=== PATIENT | male | born 2000 | race Caucasian/White ===

== ENCOUNTER 2019-05-26 12:20 | Emergency (ER) | payer OTHER ==
[2019-05-26] MEDS ORDERED: ACETAMINOPHEN 500 MG TAB ONE (12:59)
--- NOTE | 2019-05-26 13:09 | EDPHYS ---
Physician Documentation [facility] Name: Bharat Pichardo Age: 18 yrs Sex: Male : 2000 Arrival Date: 05/26/2019 Time: 12:28 Bed 11 Private MD: Pineda Perdomo B ED Physician Primitivo Wolf HPI: 05/26 13:05 This 18 yrs old Male presents to ER via Ambulatory with complaints of Sore jmm Throat, Fever. 13:05 The patient presents with sore throat. Onset: The symptoms/episode began/occurred jmm gradually, 1 day(s) ago. Modifying factors: The symptoms are alleviated by nothing, the symptoms are aggravated by nothing. Associated signs and symptoms: Pertinent positives: fever. This is a 18 year old male with no chronic medical conditions that presents to the ED with complaints of sore throat beginning yesterday which worsened today. Similar to previous episode of pharyngitis. . Historical: - Allergies: 12:48 No Known Allergies; ph - Home Meds: 12:48 None [Active]; ph - PMHx: 12:48 None; ph - PSHx: 12:48 None; ph - Immunization history:: Adult Immunizations unknown. - Social history:: Smoking status: unknown. - Ebola Screening: : Patient negative for fever greater than or equal to 101.5 degrees Fahrenheit, and additional compatible Ebola Virus Disease symptoms Patient denies exposure to infectious person Patient denies travel to an Ebola-affected area in the 21 days before illness onset No symptoms or risks identified at this time. ROS: 13:05 Cardiovascular: Negative for chest pain, palpitations, and edema, Respiratory: Negative jmm for shortness of breath, cough, wheezing, and pleuritic chest pain. 13:05 Constitutional: Positive for chills, fever. 13:05 ENT: Positive for sore throat. 13:05 All other systems are negative. Exam: 13:05 Constitutional: This is a well developed, well nourished patient who is awake, alert, jmm and in no acute distress. Head/Face: atraumatic. Eyes: EOMI, no conjunctival erythema appreciated 13:05 Neck: Trachea midline, Supple Chest/axilla: Normal chest wall appearance and motion. Cardiovascular: Regular rate and rhythm. No edema appreciated Respiratory: Normal respirations, no respiratory distress appreciated Abdomen/GI: Non distended, soft Back: Normal ROM Skin: General appearance color normal MS/ Extremity: Moves all extremities, no obvious deformities appreciated, no edema noted to the lower extremities Neuro: Awake and alert, normal gait Psych: Behavior is normal, Mood is normal, Patient is cooperative and pleasant 13:05 ENT: Posterior pharynx: Tonsils: enlarged on the right, enlarged on the left, with erythema, with exudate, Uvula: midline, swelling, that is moderate, erythema, that is moderate, exudate, that is mild, peritonsillar mass, is not appreciated. Vital Signs: 12:48 BP 122 / 77; Pulse 119; Resp 18; Temp 102.0(O); Pulse Ox 99% on R/A; Weight 61.23 kg; ph Height 6 ft. 0 in. (182.88 cm); 12:48 Body Mass Index 18.31 (61.23 kg, 182.88 cm) ph MDM: 13:00 Patient medically screened. [facility] 13:07 Data reviewed: vital signs, nurses notes. Counseling: I had a detailed discussion with franklin the patient and/or guardian regarding: the historical points, exam findings, and any diagnostic results supporting the discharge/admit diagnosis, the need for outpatient follow up, to return to the emergency department if symptoms worsen or persist or if there are any questions or concerns that arise at home. ED course: Patient is alert and non toxic in appearance in the ED. Patient with strict return precautions. patient understood and agrees with the plan of care. . 05/26 12:50 Order name: Strep ph Administered Medications: 12:58 Drug: Tylenol 1000 mg Route: PO; ph 13:15 Follow up: Response: No adverse reaction iw 13:20 Drug: Dexamethasone 10 mg Route: IM; Site: left deltoid; iw 13:40 Follow up: Response: No adverse reaction iw Disposition: 05/27 07:20 Co-signature as Attending Physician, Primitivo Wolf MD I agree with the assessment and kdr plan of care. Disposition: 05/26/19 13:09 Discharged to Home. Impression: Acute tonsillitis, Acute pharyngitis. - Condition is Stable. - Discharge Instructions: Pharyngitis, Tonsillitis. - Prescriptions for Amoxicillin 875 mg Oral Tablet - take 1 tablet by ORAL route every 12 hours for 10 days; 20 tablet. - Medication Reconciliation Form, Thank You Letter, Antibiotic Education, Prescription Opioid Use form. - Follow up: Private Physician; When: 2 - 3 days; Reason: Recheck today's complaints, Continuance of care, Re-evaluation by your physician. Signatures: Dispatcher [employer] EDMS Primitivo Wolf MD MD kdr Mickail, Joel, PA PA jmm Williams, Irene, RN RN iw Marian Acevedo RN RN ph Corrections: (The following items were deleted from the chart) 05/26 13:52 13:09 05/26/2019 13:09 Discharged to Home. Impression: Acute tonsillitis; Acute iw pharyngitis. Condition is Stable. Forms are Medication Reconciliation Form, Thank You Letter, Antibiotic Education, Prescription Opioid Use. Follow up: Private Physician; When: 2 - 3 days; Reason: Recheck today's complaints, Continuance of care, Re-evaluation by your physician. franklin
--- NOTE | 2019-05-26 13:09 | ER ---
Nurse's Notes [facility] Name: Bharat Pichardo Age: 18 yrs Sex: Male : 2000 Arrival Date: 05/26/2019 Time: 12:28 Bed 11 Private MD: Pineda Perdomo B Diagnosis: Acute tonsillitis;Acute pharyngitis Presentation: 05/26 12:46 Presenting complaint: Patient states: Sore/swollen throat that started this morning, ph denies N/V, pt febrile in triage. Transition of care: patient was not received from another setting of care. Onset of symptoms was May 26, 2019. Risk Assessment: Do you want to hurt yourself or someone else? Patient reports no desire to harm self or others. Initial Sepsis Screen:. Care prior to arrival: None. 12:46 Method Of Arrival: Ambulatory 12:46 Acuity: TIMI 4 ph 12:50 Initial Sepsis Screen: Does the patient meet any 2 criteria? No. Patient's initial iw sepsis screen is negative. Does the patient have a suspected source of infection? No. Patient's initial sepsis screen is negative. Triage Assessment: 13:50 General: Appears in no apparent distress. Behavior is calm, cooperative. iw Historical: - Allergies: 12:48 No Known Allergies; ph - Home Meds: 12:48 None [Active]; ph - PMHx: 12:48 None; ph - PSHx: 12:48 None; ph - Immunization history:: Adult Immunizations unknown. - Social history:: Smoking status: unknown. - Ebola Screening: : Patient negative for fever greater than or equal to 101.5 degrees Fahrenheit, and additional compatible Ebola Virus Disease symptoms Patient denies exposure to infectious person Patient denies travel to an Ebola-affected area in the 21 days before illness onset No symptoms or risks identified at this time. Screenin:50 Abuse screen: Denies threats or abuse. Denies injuries from another. Nutritional iw screening: No deficits noted. Tuberculosis screening: No symptoms or risk factors identified. Fall Risk None identified. Assessment: 13:10 General: Appears in no apparent distress. Behavior is calm, cooperative. Pain: iw Complains of pain in throat. Neuro: Level of Consciousness is awake, alert, obeys commands, Oriented to person, place, time, situation, Moves all extremities. Full function. Cardiovascular: Patient's skin is warm and dry. Respiratory: Airway is patent Respiratory effort is even, unlabored, Breath sounds are clear bilaterally. EENT: Throat is reddened. Derm: Skin is intact, is healthy with good turgor. Musculoskeletal: Range of motion: intact in all extremities. Vital Signs: 12:48 BP 122 / 77; Pulse 119; Resp 18; Temp 102.0(O); Pulse Ox 99% on R/A; Weight 61.23 kg; ph Height 6 ft. 0 in. (182.88 cm); 12:48 Body Mass Index 18.31 (61.23 kg, 182.88 cm) ph ED Course: 12:28 Patient arrived in ED. mr 12:28 Pineda Perdomo MD is Private Physician. mr 12:48 Triage completed. ph 12:49 Tom English PA is [facility]. [facility] 12:49 Primitivo Wolf MD is Attending Physician. [facility] 12:49 Arm band placed on Patient placed in an exam room. ph 12:57 Deborah March, RN is Primary Nurse. iw 13:15 Patient has correct armband on for positive identification. iw 13:51 No provider procedures requiring assistance completed. Patient did not have IV access iw during this emergency room visit. Administered Medications: 12:58 Drug: Tylenol 1000 mg Route: PO; ph 13:15 Follow up: Response: No adverse reaction iw 13:20 Drug: Dexamethasone 10 mg Route: IM; Site: left deltoid; iw 13:40 Follow up: Response: No adverse reaction iw Outcome: 13:09 Discharge ordered by . [facility] 13:51 Discharged to home ambulatory, with family. iw 13:51 Condition: good 13:51 Discharge instructions given to patient, family, Instructed on discharge instructions, follow up and referral plans. medication usage, Demonstrated understanding of instructions, follow-up care, medications, Prescriptions given X 1. 13:52 Patient left the ED. iw Signatures: Tom English PA PA jmm Rivera, Mary mr Deborah March, RN RN Marian Acevedo RN RN
[2019-05-26] MEDS ORDERED: dexAMETHasone 10 MG/ML VIAL ONE (13:46)
== END 2019-05-26 13:52 | disposition home or self-care (01) ==
LOC: ER 12:20
DX: J03.90 Acute tonsillitis, unspecified (principal)
CPT/HCPCS: 87070; 87081; 96372; 99283; J1100